=== PATIENT | male | born 1970 | race Caucasian/White ===

== ENCOUNTER 2025-08-12 12:40 | Observation (INO) ==
--- NOTE | 2025-08-12 12:58 | Emergency Department Note ---
Impression & Plan NSTEMI (non-ST elevated myocardial infarction) ED Provider Note CHIEF COMPLAINT: Chest pain HISTORY OF PRESENTING ILLNESS: This 54-year-old male patient presents to the emergency department for evaluation of substernal chest pain radiating towards his left arm. The patient states that the symptoms started 1.5 to 2 hrs prior to arrival. He states that it feels like someone is sitting on the middle of his chest. Also has a squeezing feeling. The patient took 4 baby aspirin approximately 1 hour ago prior to arrival. There was no improvement after the baby aspirin. The patient states that he was walking over to his brother's house which was about 100 yards from his parents house. He states that he was breathing in the cold air when the symptoms started. The patient went back to his parent's house to try to rest, but the symptoms got worse. He had a little sweating initially that resolved. The patient was able to eat Thanksgiving dinner, but the symptoms persisted and he became concerned. The patient has been taking a medication for his phlegm recently, but denies any fever, cough, or other URI symptoms. No history of asthma or reactive airway disease. He states that he has a heart murmur that was diagnosed in 2017 and had an ECHO that was concerning that he may have had a previous heart attack, but no other acute findings per patient. The patient does not think he's ever had a stress test. He is currently on cholesterol medication, but not on blood pressure medication. He states that his BP has been high recently though. He feels like the cold air triggered his lungs causing the pain. However, the symptoms did not improve after going into the warm. He is from [place], [place] and is up visiting for the holidays. He did take 4 baby aspirin about 1 hour ago. He is not on any blood thinners. He has a strong family history of heart problems including heart attacks, cardiac stents, and HTN. He drove 9-9.5 hrs to get here yesterday. The patient denies recent injury/trauma/surgery. Denies any personal history of blood clots or bleeding disorders. Denies any family history of blood clots or bleeding disorders. Denies any hormonal medication use. Denies any hemoptysis. Denies leg/calf pain or swelling. REVIEW OF SYSTEMS: See HPI for pertinent positives and pertinent negatives. ALLERGIES: NKDA MEDICATIONS: Levothyroxine, Cholesterol medication, medication for phlegm PAST MEDICAL HISTORY: Hypothyroidism, high cholesterol, allergic rhinitis, heart murmur, right Achilles tendon repair, left meniscal repair PHYSICAL EXAM: VITALS: Vitals are noted on the nurse's note and reviewed by myself. GENERAL: Non toxic, in no acute distress, non-diaphoretic. SKIN: Capillary refill <2 sec. EYES: PERRLA. EOMI. Conjunctivae without injection, sclerae without icterus. NOSE: Patent without discharge. MOUTH: Mucous membranes moist. Uvula midline. Airway patent. NECK: Supple without nuchal rigidity. HEART: Regular rate and rhythm without murmurs gallops or rubs. LUNGS: Clear to auscultation bilaterally without wheezes, rales or rhonchi. No retractions or accessory muscle use. ABDOMEN: Positive bowel sounds x 4. Normal tympanic percussion. Soft, nontender to palpation. No masses or hepatosplenomegaly. Warner sign negative. No CVA tenderness. No guarding, rigidity, or rebound tenderness. No focal RLQ or LLQ tenderness. MUSCULOSKELETAL: No gross musculoskeletal defects. Bilateral calves are nontender to palpation. No erythema, edema, or warmth of the bilateral calves. Peripheral pulses 2+ and equal in the bilateral upper and lower extremities. NEURO: Patient was alert and oriented. No focal neurological deficits. DIFFERENTIAL DIAGNOSIS: Differential diagnosis includes angina, NM, pericarditis, myocarditis, aortic dissection, pleurisy, pneumothorax, PE, pneumonia, pneumomediastinum, esophagitis, esophageal spasm, GERD, perforated esophagus, perforated duodenal/gastric ulcer, pancreatitis, cholecystitis, costochondritis, musculoskeletal, bronchitis, URI, or others. ED COURSE AND MEDICAL DECISION MAKING: MEDICATIONS GIVEN: The patient took 4 baby aspirin prior to arrival. 250 mL normal saline solution bolus. Nitroglycerin 0.4 mg sublingual. MONITOR: Continuous nurse monitoring: Order was placed for continuous nurse monitoring. Patient was placed on the nurse monitoring and continuous pulse ox. Patient was noted to be in normal sinus rhythm at an initial rate of 74 bpm per my interpretation. EKG: EKG was interpreted by myself as normal saline solution bolus at 71 bpm with no acute ST or T wave changes. INTERPRETATION OF LABS: I interpreted the labs with full lab results as below in the lab section of this note. Laboratory results pertinent to the emergent complaint are discussed in the MDM section below. The patient was advised to follow up with their PCP and/or specialist(s) for further outpatient monitoring and management of any abnormal results. INTERPRETATION OF IMAGING: Imaging studies were interpreted by myself and read by radiology as per the imaging section of this note. The patient was advised to follow up with their PCP and/or specialist(s) for further outpatient management of any non-emergent abnormal findings. Chest x-ray showed cardiomegaly with no acute cardiopulmonary etiology. CONSULTATIONS: Dr. Prakash of cardiology. On-call hospitalist. MDM SUMMARY: I examined the patient. The patient states that approximate 1.5 to 2 hours prior to arrival he was walking to his brother's house and developed substernal chest pain. The patient initially thought it was from the cold air, but the symptoms did not resolve when he went inside and rested. The patient ate Thanksgiving dinner, but the symptoms persisted. He felt like something was sitting on his chest and he had a squeezing pain. He did take 4 baby aspirin prior to arrival. An IV lock was placed and labs were drawn. The patient had already taken the 324 mg of aspirin. The patient was given 250 mL normal saline solution bolus. The patient was given sublingual nitroglycerin with complete resolution of his chest pain. The patient remained chest pain-free in the emergency department. EKG did not show evidence of STEMI or ischemic changes. The patient remained on the monitor with no changes in his cardiac rhythm per monitor chancery clerk. CBC without leukocytosis, anemia, or thrombocytopenia. Coags are normal. D- dimer normal. Glucose 155, but CMP otherwise normal. Lipase normal. Magnesium normal. TSH normal. High-sensitivity troponin elevated at 533.3. Repeat high- sensitivity troponin after the patient had already been admitted increased to 3010.2. Chest x-ray showed cardiomegaly with no acute cardiopulmonary etiology. I had a meaningful discussion about this patient with Dr. Harry who agrees with my assessment and the treatment plan. The patient's symptoms and workup findings are concerning for NSTEMI. I spoke with the on-call hospitalist who agreed to admit the patient for further evaluation and treatment. I spoke with Dr. Prakash of cardiology who recommended starting the patient on heparin, a beta-lori, and a statin. He recommended obtaining an echo and having the patient be n.p.o. after midnight. I relayed these recommendations to the on- call hospitalist. The patient's care was transferred in stable condition. 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 Beliefs That Will Affect Care: None Current Living Situation: Family Other Information That Helps Us Care for You: No Feels Safe at Home: Yes Safety Concerns: Feels Safe At This Time Allergies Allergies Allergy/AdvReac Type Severity Reaction Status Date / Time No Known Allergies Allergy Verified 08/12/25 12:59 Home Meds Home Medications Medication Instructions Recorded Confirmed atorvastatin 20 mg tablet 20 mg PO DAILY 08/12/25 08/12/25 levothyroxine 200 mcg tablet 200 mcg PO DAILY 08/12/25 08/12/25 montelukast 10 mg tablet 10 mg PO DAILY 08/12/25 08/12/25 Results & Data (ED) Vital Signs Vital Signs - 24 hr 08/12/25 12:42 08/12/25 12:43 08/12/25 12:50 Temperature 36.9 C Temperature Source Oral Pulse Rate 74 Pulse Rate [Apical] 75 Respiratory Rate 19 18 Respiratory Effort / Characteristics Non-Labored Spontaneous Respiratory Depth Normal Blood Pressure 186/101 H Blood Pressure [Left Arm] 177/103 H Blood Pressure Mean 129 Blood Pressure Mean [Left Arm] 127 Blood Pressure Position Sitting Pulse Oximetry 96 94 97 Oxygen Delivery Method Room Air Room Air Room Air Sepsis Recent Fever Within 48 Hours No Sepsis New/Unexplained Change in Mental Status N/A Sepsis Action Taken by Nursing No Action Required 08/12/25 12:59 08/12/25 13:30 08/12/25 14:00 Temperature Temperature Source Pulse Rate 75 Pulse Rate [Apical] 65 71 Respiratory Rate 16 16 Respiratory Effort / Characteristics Respiratory Depth Blood Pressure Blood Pressure [Left Arm] 148/88 H 160/94 H Blood Pressure Mean Blood Pressure Mean [Left Arm] 108 116 Blood Pressure Position Pulse Oximetry 96 95 Oxygen Delivery Method Room Air Room Air Sepsis Recent Fever Within 48 Hours Sepsis New/Unexplained Change in Mental Status Sepsis Action Taken by Nursing Laboratory Data 08/12/25 13:03 08/12/25 13:03 Lab Results 08/12/25 Range/Units 13:03 WBC 6.59 (4.8-10.8) K/ul RBC 5.41 (4.70-6.10) M/uL Hgb 15.9 (14.0-18.0) g/dL Hct 47.1 (42.0-52.0) % MCV 87.1 (80.0-100.0) fL MCH 29.4 (25.0-34.0) pg MCHC 33.8 (32.0-36.0) g/dL RDW Std Deviation 39.2 (36.4-46.3) fL RDW Coeff of Mallorie 12.4 (11.5-14.5) % Plt Count 214 (130-400) K/uL MPV 9.8 (9.4-12.4) fL Immature Gran % (Auto) 0.5 % Neut % (Auto) 77.8 % Lymph % (Auto) 16.8 % [place] % (Auto) 3.8 % Eos % (Auto) 0.2 % Baso % (Auto) 0.9 % Neut # (Auto) 5.13 (1.40-6.50) K/uL Lymph # (Auto) 1.11 L (1.20-3.40) K/uL [place] # (Auto) 0.25 (0.11-0.59) K/uL Eos # (Auto) 0.01 (0.00-0.50) K/uL Baso # (Auto) 0.06 (0.00-0.20) K/uL Immature Gran # (Auto) 0.03 (0.01-0.20) K/uL PT 10.6 (9.0-12.0) Seconds INR 1.0 (0.9-1.1) APTT 24 (21-31) Seconds PTT Ratio 0.9 D-Dimer < 190 (0-500) ug/L FEU Sodium 139 (136-145) mmol/L Potassium 4.2 (3.5-5.1) mmol/L Chloride 103 (98-107) mmol/L Carbon Dioxide 30 (21-32) mmol/L Anion Gap 6 (3-11) BUN 15 (6-23) mg/dl Creatinine 1.00 (0.6-1.4) mg/dl Est Cr Clr Drug Dosing 104.1 ml/min eGFR 88.88 BUN/Creatinine Ratio 15.0 (10-20) Glucose 155 H (70-99(Fasting)) mg/dl Calcium 9.3 (8.6-10.3) mg/dl Magnesium 2.0 (1.7-2.4) mg/dl Total Bilirubin 1.0 (0.2-1.0) mg/dl AST 30 (13-39) U/L ALT 45 (7-52) U/L Alkaline Phosphatase 95 (34-104) U/L Troponin I High Sens 533.3 H* (0-20) pg/ml Total Protein 7.4 (6.0-8.3) gm/dl Albumin 4.3 (3.4-5.0) gm/dl Globulin 3.1 (2.5-4.0) gm/dl Albumin/Globulin Ratio 1.4 (0.9-2) Lipase 30 (11-82) U/L TSH 0.331 (0.300-4.500) uIu/ml Administered Medications Heparin Sodium/Dextrose (Heparin 71688 Unit/500 Ml D5w) 25,000 units in 500 mls @ 20 mls/hr IV .Q24H ALAN; Protocol Stop: 09/11/25 15:44 Last Admin: 08/12/25 17:23 Dose: 1,000 units/hr, 20 mls/hr Documented By: AM Co-signed By: ALONSO Discontinued Medications Heparin Sodium (Porcine) (Heparin Sod (Porcine) 1000 Unit/Ml) 7,000 units IV NOW ONE Stop: 08/12/25 15:04 Last Admin: 08/12/25 16:51 Dose: Not Given Documented By: AM Heparin Sodium (Porcine) (Heparin Sod (Porcine) 1000 Unit/Ml) 4,000 units IV NOW ONE Stop: 08/12/25 15:39 Last Admin: 08/12/25 17:22 Dose: 4,000 units Documented By: AM Co-signed By: ALONSO Heparin Sodium/Dextrose (Heparin Iv Adult Wt-Based Standard W/ Initial Bolus Protocol) 1 each IV NOW STA; Protocol Stop: 08/12/25 14:48 Last Admin: 08/12/25 16:46 Dose: Not Given Documented By: AM Heparin Sodium/Dextrose (Heparin Iv Adult Wt-Based Low-Dose W/ Initial Bolus Protocol) 1 each IV NOW STA; Protocol Stop: 08/12/25 15:24 Last Admin: 08/12/25 17:23 Dose: 1 each Documented By: AM Sodium Chloride (Nss) 250 mls @ 999 mls/hr IV .Q16M ONE Stop: 08/12/25 13:14 Last Infusion: 08/12/25 15:12 Dose: Infused Documented By: amg Admin: 08/12/25 13:17 Dose: 999 mls/hr Documented By: amg Heparin Sodium/Dextrose (Heparin 75130 Unit/500 Ml D5w) 25,000 units in 500 mls @ 32 mls/hr IV .[id number] ALAN; Protocol Stop: 09/11/25 15:14 Last Admin: 08/12/25 16:46 Dose: Not Given Documented By: AM Metoprolol Tartrate (Metoprolol Tartrate 25 Mg Tab) 25 mg PO ONE ONE Stop: 08/12/25 15:01 Last Admin: 08/12/25 16:45 Dose: 25 mg Documented By: AM Nitroglycerin (Nitroglycerin Sl 0.4 Mg/Tab Tab) 0.4 mg SL NOW STA Stop: 08/12/25 13:00 Last Admin: 08/12/25 13:18 Dose: 0.4 mg Documented By: amg Imaging Data Radiologist's Impression: Chest X-Ray 08/12/25 12:59 SINGLE VIEW CHEST CLINICAL HISTORY: Chest pain FINDINGS: An AP, portable, upright chest radiograph is obtained. No prior studies are available for comparison at the time of dictation. The heart is enlarged. The pulmonary vasculature is noncongested. There is mild elevation of the right hemidiaphragm and bibasilar atelectasis. No airspace consolidation or large pleural effusion is identified. No pneumothorax is seen. The bony thorax is grossly intact. Arthritic change is noted in the left shoulder. IMPRESSION: Cardiomegaly with no acute cardiopulmonary abnormality identified. ACT 112: Negative or not required by law. Electronically signed by: Casa Childress M.D. 08/12/2025 1:33 PM Discharge Plan Visit Data Chief Complaint: Cardiac Assessment Stated Complaint: CHEST PAIN LT ARM TINGLING ED Provider: Kyrie Harry ED Midlevel Provider: Paulina Mohr Discharge Problem: NSTEMI (non-ST elevated myocardial infarction) Patient Disposition: Admitted As Inpatient Condition: Fair Discharge Instructions Interventions: ED Discharge Assessment Last Done: 08/12/25 16:00
[2025-08-12] MEDS: SODIUM CHLORIDE 0.9% 250 ML IV ONE (13:17)
[2025-08-12] MEDS: NITROGLYCERIN SL 0.4 MG/TAB TAB SL STA (13:18)
[2025-08-12 13:23] LABS: Hematocrit (blood only) 47.1 % (42.0-52.0); Hemoglobin 15.9 g/dL (14.0-18.0); Immature Granulocytes # (auto) 0.03 K/uL (0.01-0.20); Immature Granulocytes % (auto) 0.5 %; Mean Corpuscular Hemoglobin 29.4 pg (25.0-34.0); Mean Corpuscular Volume 87.1 fL (80.0-100.0); Platelet Count 214 K/uL (130-400); RDW Standard Deviation 39.2 fL (36.4-46.3); Red Blood Count 5.41 M/uL (4.70-6.10); White Blood Count 6.59 K/ul (4.8-10.8)
--- NOTE | 2025-08-12 13:34 | XRay Report ---
SINGLE VIEW CHEST CLINICAL HISTORY: Chest pain FINDINGS: An AP, portable, upright chest radiograph is obtained. No prior studies are available for c omparison at the time of dictation. The heart is enlarged. The pulmonary vasculature is noncongested. There is mild elevation of the right hemidiaphragm and bibasilar atelectasis. No airspace consolidat ion or large pleural effusion is identified. No pneumothorax is seen. The bony thorax is grossly inta ct. Arthritic change is noted in the left shoulder. IMPRESSION: Cardiomegaly with no acute cardiopulmonary abnormality identified. ACT 112: Negative or not required by law. Electronically signed by: Casa Childress M.D. 08/12/2025 1:33 PM
[2025-08-12 13:41] LABS: Alanine Aminotransferase 45.0 U/L (7-52); Albumin Globulin Ratio 1.4 (0.9-2); Albumin Level 4.3 gm/dl (3.4-5.0); Alkaline Phosphatase 95.0 U/L (34-104); Anion Gap 6.0 (3-11); Bilirubin,Total 1.0 mg/dl (0.2-1.0); Blood Urea Nitrogen 15.0 mg/dl (6-23); Calcium 9.3 mg/dl (8.6-10.3); Carbon Dioxide 30.0 mmol/L (21-32); Chloride 103.0 mmol/L (98-107); Creatinine Clr Calc Pharmacy 104.1 ml/min; Globulin 3.1 gm/dl (2.5-4.0); Glucose 155.0 mg/dl (70-99(Fasting)); Lipase 30.0 U/L (11-82); Magnesium 2.0 mg/dl (1.7-2.4); Potassium 4.2 mmol/L (3.5-5.1); Sodium 139.0 mmol/L (136-145); Total Protein 7.4 gm/dl (6.0-8.3)
[2025-08-12 13:56] LABS: INR 1.0 (0.9-1.1); Partial Thromboplastin Time 24 Seconds (21-31); Prothrombin Time 10.6 Seconds (9.0-12.0)
--- NOTE | 2025-08-12 14:19 | History & Physical Report ---
Date of Service August 12, 2025 Assessment & Plan (1) NSTEMI (non-ST elevated myocardial infarction): (2) Hyperlipidemia: (3) Hypothyroidism: Plan Patient is a 54 year old M with a past medical history of hyperlipidemia, hypothyroidism, hypertension without medical management, presenting with exertional chest pain that started today around 8:30am when ambulating short distance. Initially symptoms felt like a "toothache" then progressed to a squeezing chest pain with clamminess and diaphoresis. He took 4 baby aspirin and came here. Has a history of a heart murmur, found on cardiac workup via Echo in 2009 and then again 2016; asymptomatic at the time but had a workup for employment purposes. Echo suggestive of previous TN per patient report. Has had high blood pressure but not on an medications. He has no personal cardiac history, but does have a strong family history of cardiac disease with father requiring multiple stents. Not taking blood thinners. Lives in [place] and visiting family for the holiday. NSTEMI Admit to PCU Presenting with chest pain with exertion; Trop elevated 533; Chest pain resolved with Nitro given in ED EKG showing NSR with rate 71 bpm, QTc 428 Echo ordered and pending; reportedly had Echo 2009 and 2016 for routine work clearance with murmur finding and poss old TN Heparin gtts + bolus started Lopressor 25 mg BID started Daily EKG x 2 Trend Trop Q6H and as needed Cardiology consult ordered and pending NPO at [facility] for possible cardiac cath tomorrow Hyperlipidemia Continue home statin Hypothyroidism Continue home levothyroxine DVT Ppx: Heparin Code status: Full PCP: Out of state Dispo: Admit Patient seen in collaboration with Dr. Lake. Please see addendum.I spent a total of 60 minutes coordinating, documenting and providing care for this patient excluding time spent in the performance of separately billed services or time spent by another provider/QHP. History of Present Illness Primary Care Provider: FABIOLA PARKER Patient is a 54 year old M with a past medical history of hyperlipidemia, hypothyroidism, hypertension without medical management, presenting with exertional chest pain that started today around 8:30am when ambulating short distance. Initially symptoms felt like a "toothache" then progressed to a squeezing chest pain with clamminess and diaphoresis. He took 4 baby aspirin and came here. Has a history of a heart murmur, found on cardiac workup via Echo in 2009 and then again 2017; asymptomatic at the time but had a workup for employment purposes. Echo suggestive of previous TN per patient report. Has had high blood pressure at PCP but not on an medications. He has no personal cardiac history, but does have a strong family history of cardiac disease with father requiring multiple stents. Not taking blood thinners. Lives in [place] and visiting family for the holiday. Denies fever, chills, weight loss, weakness, headache, cognitive changes, vision/hearing changes, chest pain, SOB, swelling, difficulty breathing, urinary concerns, N/V/D, joint swelling/pain, ambulation difficulty, skin rashes, lesions, bleeding, bruising. Discussed with ED provider labs specifically elevated troponin with suspected NSTEMI, medical management in ED including cardiology consult and nitro administration, reason for admission for NSTEMI management. In the emergency department, patient was hypertensive with otherwise stable vital signs. EKG showing NSR with rate 71 bpm, QTc 428. Trop elevated 533. Nitro given for chest pain with positive results. Lab workup unremarkable with no evidence of infectious etiology. Nonfasting glucose 155 following a large meal. Additional workup with Chest Xray showing cardiomegaly and no active cardiopulmonary disease. History obtained primarily from the patient and via hospitalization record. Allergies Allergy/AdvReac Type Severity Reaction Status Date / Time No Known Allergies Allergy Verified 08/12/25 12:59 Home Medications Medication Instructions Recorded Confirmed Type atorvastatin 20 mg tablet 20 mg PO DAILY 08/12/25 08/12/25 History levothyroxine 200 mcg tablet 200 mcg PO DAILY 08/12/25 08/12/25 History montelukast 10 mg tablet 10 mg PO DAILY 08/12/25 08/12/25 History Past Med/Surg History Problem List (Updated 08/12/25 @ 14:44 by PRASAD Church) Hypothyroidism Hyperlipidemia NSTEMI (non-ST elevated myocardial infarction) Social History Smoking Status: Never smoker Preferred Language: Cymro Feels Safe at Home: Yes Review of Systems Review of Systems: All systems reviewed & are unremarkable except as noted in HPI & below Physical Exam Physical Exam: VITALS: Reviewed. WEIGHT/BMI reviewed. GEN: Healthy appearing, well-developed, NAD. PSYCH: Good Judgment. AOx3. Normal memory, mood, and affect. HEENT -Head: NC/AT; -Eyes: PERRL, EOMI. No discharge or redn ess; -Ears: External ears are normal. -Nose: Normal nares. -Mouth and throat: MMM. Normal gums, muc gilbert, palate,. Good dentition. NECK: Supple, with no masses. CV: S1, S2 with LUNGS: CTAB, no w/r/c. ABD: Soft, NT/ND, NBS, no masses or organomegaly. : N/A SKIN: Warm, well perfused. No skin rashes or abnormal lesions. MSK: No deformities, Normal gait. EXT: No clubbing, cyanosis, or edema. NEURO: Ambulating with no limitations. Normal muscle strength and tone. No focal deficits. Results & Data Results & Data Vital Signs (Past 12 Hours) Vital Signs Temp Pulse Pulse Resp BP BP Pulse Ox 08/12/25 14:00 71 16 160/94 H 95 08/12/25 13:30 65 16 148/88 H 96 08/12/25 12:59 75 08/12/25 12:50 75 18 177/103 H 97 08/12/25 12:43 36.9 C 74 19 186/101 H 94 O2 Del Method 08/12/25 14:00 Room Air 08/12/25 13:30 Room Air 08/12/25 12:59 08/12/25 12:50 Room Air 08/12/25 12:43 Room Air Laboratory Results Short CBC 08/12/25 Range/Units 13:03 WBC 6.59 (4.8-10.8) K/ul Hgb 15.9 (14.0-18.0) g/dL Hct 47.1 (42.0-52.0) % Plt Count 214 (130-400) K/uL BMP 08/12/25 13:03 Sodium 139 Potassium 4.2 Chloride 103 Carbon Dioxide 30 BUN 15 Creatinine 1.00 Glucose 155 H Calcium 9.3 Liver Function 08/12/25 Range/Units 13:03 Total Bilirubin 1.0 (0.2-1.0) mg/dl AST 30 (13-39) U/L ALT 45 (7-52) U/L Alkaline Phosphatase 95 (34-104) U/L Albumin 4.3 (3.4-5.0) gm/dl Diagnostic Findings Chest X-Ray 08/12/25 12:59 SINGLE VIEW CHEST CLINICAL HISTORY: Chest pain FINDINGS: An AP, portable, upright chest radiograph is obtained. No prior studies are available for comparison at the time of dictation. The heart is enlarged. The pulmonary vasculature is noncongested. There is mild elevation of the right hemidiaphragm and bibasilar atelectasis. No airspace consolidation or large pleural effusion is identified. No pneumothorax is seen. The bony thorax is grossly intact. Arthritic change is noted in the left shoulder. IMPRESSION: Cardiomegaly with no acute cardiopulmonary abnormality identified. ACT 112: Negative or not required by law. Electronically signed by: Casa Childress M.D. 08/12/2025 1:33 PM Supervising Physician Co-Signing Physician Notes Attending addendum: The patient was seen and examined in emergency room 54-year-old obese male with significant past medical history of hypertension, hyperlipidemia and hypothyroidism apparently has been complaining of Chest pain started around 8:30 AM when ambulating for a short distance Pain was in the center of the chest, heavy feeling like cold air going into the chest and associated with sweating. pain lasted for about 1 to 2 hours Denies any other significant symptoms and has been feeling better following sublingual nitro in the emergency room On examination Lying in bed without any acute distress and denies any more chest pain Remains hemodynamically stable with blood pressure on the upper side at 160/94 Chest was clear to auscultate bilaterally HeartS1-S2, regular Abdomenbenign Extremitiesno edema CNSalert, awake and oriented x 3 and no focal sensory or no motor deficit appreciated His admission labs, EKG and imaging studies reviewed Significant elevation of troponin to 533.3 without any EKG changes and likely has non-ST elevation [place] Cardiology consulted and the patient is being started with intravenous heparin, beta-lori and he has been already on statin. Aspirin 81 mg will be continued as well Agree with assessment and plan as outlined above by PRASAD Loyola and take the full responsibility of care in the hospital Total time taken to talk to the patient, examining him, reviewing the chart and the medications and planning management was [address] Ronni Lake
[2025-08-12 14:21] LABS: Thyroid Stimulating Hormone 0.331 uIu/ml (0.300-4.500)
[2025-08-12] MEDS ORDERED: POLYETHYLENE (MIRALAX) 17 GM PACK PO PRN (16:23)
[2025-08-12] MEDS ORDERED: MELATONIN 3 MG TAB PO PRN (16:23)
[2025-08-12] MEDS ORDERED: ONDANSETRON INJ 2 MG/ML 2 ML VIAL IV PRN (16:23)
[2025-08-12] MEDS ORDERED: NITROGLYCERIN SL 0.4 MG/TAB TAB SL PRN (16:23)
[2025-08-12] MEDS ORDERED: MAGNESIUM HYDROXIDE SUSP 30 ML UDC PO PRN (16:23)
[2025-08-12] MEDS ORDERED: ACETAMINOPHEN 325 MG TAB PO PRN (16:23)
[2025-08-12] MEDS ORDERED: ALUMINUM/MAGNESIUM SUSP 30 ML UDC PO PRN (16:23)
[2025-08-12] MEDS: METOPROLOL TARTRATE 25 MG TAB PO ONE (16:45)
[2025-08-12] MEDS: HEPARIN 25000 UNIT/500 ML D5W 25,000 UNITS/500 ML BAG IV SCH ×2 (16:46→17:23)
[2025-08-12] MEDS: Heparin IV Adult Wt-Based Standard w/ INITIAL Bolus Protocol IV STA (16:46)
[2025-08-12] MEDS: HEPARIN SOD (PORCINE) 1000 UNIT/ML IV ONE ×2 (16:51→17:22)
[2025-08-12] MEDS: Heparin IV Adult Wt-Based Low-Dose w/ INITIAL Bolus Protocol IV STA (17:23)
[2025-08-12] MEDS: METOPROLOL TARTRATE 25 MG TAB PO SCH (20:05)
[2025-08-13 00:23] LABS: ANTI-Xa, UFH(UnfractionatedHep 0.16 IU/ml (0.3-0.7)
[2025-08-13 01:09] LABS: Hematocrit (blood only) 46.7 % (42.0-52.0); Hemoglobin 15.8 g/dL (14.0-18.0); Mean Corpuscular Hemoglobin 29.2 pg (25.0-34.0); Mean Corpuscular Volume 86.3 fL (80.0-100.0); Platelet Count 218 K/uL (130-400); RDW Standard Deviation 39.3 fL (36.4-46.3); Red Blood Count 5.41 M/uL (4.70-6.10); White Blood Count 10.78 K/ul (4.8-10.8)
[2025-08-13] MEDS: HEPARIN SOD (PORCINE) 1000 UNIT/ML IV ONE (01:11)
[2025-08-13 01:25] LABS: Anion Gap 8.0 (3-11); Blood Urea Nitrogen 15.0 mg/dl (6-23); Calcium 8.8 mg/dl (8.6-10.3); Carbon Dioxide 25.0 mmol/L (21-32); Chloride 106.0 mmol/L (98-107); Creatinine Clr Calc Pharmacy 119.6 ml/min; Glucose 103.0 mg/dl (70-99(Fasting)); Magnesium 2.0 mg/dl (1.7-2.4); Potassium 4.0 mmol/L (3.5-5.1); Sodium 139.0 mmol/L (136-145)
[2025-08-13] MEDS: LEVOTHYROXINE SODIUM 200 MCG TABLET PO SCH (05:50)
--- NOTE | 2025-08-13 07:59 | Hospitalist Progress Note ---
<Statement entered by Dao Phan, - 08/13/25 15:10> I have seen and examined the patient and have discussed the case with the advance practice provider. I have reviewed the advanced practitioner's documentation, and I agree with, and take responsibility for that plan of care. Patient seen post-cardiac cath. Resting comfortably in bed. States he actually feels improved and his chest. Feels like he can breathe better. Reviewed need for new medications: Dual antiplatelet and beta-lori. Further plan of care as outlined below I spent a total of 17 minutes coordinating, documenting, and providing care for this patient excluding time spent by another provider/QHP. Date of Service August 13, 2025 Assessment & Plan (1) NSTEMI (non-ST elevated myocardial infarction): (2) Hyperlipidemia: (3) Hypothyroidism: Plan Patient is a 54 year old M with a past medical history of hyperlipidemia, hypothyroidism, hypertension without medical management, presenting with exertional chest pain that started today around 8:30am when ambulating short distance. Initially symptoms felt like a "toothache" then progressed to a squeezing chest pain with clamminess and diaphoresis. He took 4 baby aspirin and came here. Has a history of a heart murmur, found on cardiac workup via Echo in 2009 and then again 2017; asymptomatic at the time but had a workup for employment purposes. Echo suggestive of previous IN per patient report. Has had high blood pressure but not on an medications. He has no personal cardiac history, but does have a strong family history of cardiac disease with father requiring multiple stents. Not taking blood thinners. Lives in [place] and visiting family for the holiday. NSTEMI Presenting with chest pain with exertion; Trop elevated 533 tending up -> 06936 overnight; Chest pain resolved with Nitro given in ED Today EKG showing NSR with no ST elevation, rate 61 bpm, QTc 428 Echo showing LVEF 60-65%, normal wall motion, no valvular dysfunction; reportedly had Echo 2009 and 2016 for routine work clearance with murmur finding and poss old IN Heparin gtts to continue s/p cardiac cath today with Dr. Miranda today-> 70-80% stenosis with thrombus, 80% earlymid stenosis to LAD with stent placement. Recommendations dual- antiplatelet therapy (effient/asa) and statin Cardiology consulted today with the following recommendations: * Change metoprolol tartrate to metoprolol succinate 25 mg daily am of 08/14 * Possibly adding losartan 25 mg daily for HTN if renal function stable on 08/14/25 * Check lipid panel to fasting labs from this am * Increase atorvastatin to 40 mg daily Cardiology to follow Hyperlipidemia Continue home statin- will increase dosing per Cardiology recommendations Hypothyroidism Continue home levothyroxine DVT Ppx: Heparin Code status: Full PCP: Out of state Dispo: Admit Patient seen in collaboration with Dr. Phan. Please see addendum.I spent a total of 40 minutes coordinating, documenting and providing care for this patient excluding time spent in the performance of separately billed services or time spent by another provider/QHP. Admission and Anticipated Discharge Date Admission Date: August 12, 2025 Subjective Patient seen and examined at bedside this morning. Patient reporting no chest pain and feels better than when he initially came to the hospital. Discussed elevated troponin levels, Cardiology consult, and possible cardiac catheterization today. Patient verbalized understanding and agreeable to this plan. Also discussed started beta lori therapy and the need to continue with treatment post discharge. Denies chest pain, shortness of breath with and without exertion, dizziness, lightheadedness, numbness/tingling, abdominal pain, nausea, back pain. Review of Systems Review of Systems: All systems reviewed & are unremarkable except as noted in Subjective Physical Exam Physical Exam: VITALS: Reviewed. WEIGHT/BMI reviewed. GEN: Healthy appearing, well-developed, NAD. PSYCH: Good Judgment. AOx3. Normal memory, mood, and affect. HEENT -Head: NC/AT; -Eyes: PERRL, EOMI. No discharge or redn ess; -Ears: External ears are normal. -Nose: Normal nares. -Mouth and throat: MMM. Normal gums, muc gilbert, palate,. Good dentition. NECK: Supple, with no masses. CV: RRR, no m/r/g. LUNGS: CTAB, no w/r/c. ABD: Soft, NT/ND, NBS, no masses or organomegaly. : N/A SKIN: Warm, well perfused. No skin rashes or abnormal lesions. MSK: No deformities, Normal gait. EXT: No clubbing, cyanosis, or edema. NEURO: Ambulating with no limitations. Normal muscle strength and tone. No focal deficits. Results & Data Results & Data Vital Signs (Past 12 Hours) Vital Signs Temp Pulse Pulse Resp BP BP Pulse Ox 08/13/25 07:19 36.8 C 56 L 20 147/83 H 92 08/13/25 03:31 36.4 C L 63 17 144/81 H 92 08/12/25 22:54 36.6 C 61 17 157/90 H 154/88 H 92 08/12/25 21:36 65 O2 Del Method 08/13/25 07:19 Room Air 08/13/25 03:31 Room Air 08/12/25 22:54 Room Air 08/12/25 21:36 Laboratory Results Short CBC 08/13/25 Range/Units 00:47 WBC 10.78 (4.8-10.8) K/ul Hgb 15.8 (14.0-18.0) g/dL Hct 46.7 (42.0-52.0) % Plt Count 218 (130-400) K/uL BMP 08/13/25 00:47 Sodium 139 Potassium 4.0 Chloride 106 Carbon Dioxide 25 BUN 15 Creatinine 0.87 Glucose 103 H Calcium 8.8
[2025-08-13 08:06] LABS: ANTI-Xa, UFH(UnfractionatedHep 0.26 IU/ml (0.3-0.7)
--- NOTE | 2025-08-13 08:53 | XCELERA ---
[id number]
[2025-08-13] MEDS ORDERED: LEVOTHYROXINE SODIUM 200 MCG TABLET PO SCH (09:00)
[2025-08-13] MEDS: MONTELUKAST SODIUM 10 MG TABLET PO SCH (09:11)
[2025-08-13] MEDS: ATORVASTATIN 20 MG TAB PO SCH (09:12)
[2025-08-13] MEDS: ASPIRIN 81 MG ECTAB PO SCH (09:12)
--- NOTE | 2025-08-13 10:09 | Cardiology Consultation ---
Date of Consultation August 13, 2025 Assessment & Plan (1) NSTEMI (non-ST elevated myocardial infarction): (2) Hyperlipidemia: (3) HTN (hypertension): 54-year-old male with past history of hypothyroidism, dyslipidemia, and hypertension presents with symptoms of classic angina, no acute repolarization abnormalities on serial EKG tracings, elevation in high-sensitivity troponin with initial measurement of 533 that subsequently increased to 3010--> 14,401--> 14,263 --> 14,333 pg/ml. Was hypertensive on presentation. Symptoms resolved having received sublingual nitroglycerin x 1 in the emergency department. Echocardiogram with no regional wall motion abnormalities. Normal LVEF 60-65%. * Continue ASA, UF heparin infusion * Change metoprolol to metoprolol succinate 25 mg daily am of 08/14 * Anticipate adding losartan 25 mg daily for HTN if renal function stable on 08/14/25 * Add fasting lipid panel to fasting labs from this am * Increase atorvastatin to 40 mg daily * Keep NPO except medications * Case discussed with Dr Miranda of interventional cardiology. Tentative plan for invasive coronary angiography today. I spent a total of 80 minutes on the date of service in preparation, delivery, and documentation of the care provided to this patient, excluding any time spent in the performance of separately billed services. 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 The patient is in the area visiting his family who live in [place]. He states that his parents and his brother have adjoining properties. Yesterday, he was in his normal state of health and feeling well helping his family with final preparations for their Thanksgiving meal. He did walk [id number] between the two properties and did not feel anything unusual. When he was back in his parents house he first noted feeling "clammy "with subsequent intermittent sensation of a squeezing sensation in his chest but then settled into a dull ache that felt like a toothache. He ate his Thanksgiving meal but noted having little appetite. His mother is a retired registered nurse and took his blood pressure with systolic blood pressure in the 180s. The patient took three 81 mg aspirin tablets and presented to the emergency department shortly thereafter. Initial blood pressure on arrival was 186/101. He received a dose of sublingual nitroglycerin with resolution of his symptoms and his symptoms have not returned. He was subsequently started on therapy including aspirin, metoprolol tartrate, and his outpatient statin medication was continued. He has been tolerating unfractioned heparin infusion without complication. Notes that he sees his primary care provider regularly and his most recent past two visits he had been found to have mildly high blood pressure with reading in the 140s over 90s. He had yet to start medication but the patient was watching his blood pressure on a home monitor. Past Medical History: Dyslipidemia hypothyroidism. 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[place], [place] He is physically active including hunting, walking, hiking, and running he describes rare alcohol use He is a non-smoker He has been , his spouse's name is Dejah They have 4 children Allergies Allergy/AdvReac Type Severity Reaction Status Date / Time No Known Allergies Allergy Verified 08/12/25 12:59 Home Medications Medication Instructions Recorded Confirmed Type atorvastatin 20 mg tablet 20 mg PO DAILY 08/12/25 08/12/25 History levothyroxine 200 mcg tablet 200 mcg PO DAILY 08/12/25 08/12/25 History montelukast 10 mg tablet 10 mg PO DAILY 08/12/25 08/12/25 History Patient History Social History Smoking Status: Never smoker Second Hand Exposure: No; Do You Dip or Chew Tobacco: No; Hx Alcohol Use: Yes Hx Substance Use: No Preferred Language: Moldovan Communication Ability: Effective Senior Behavioral Scientist Required: No Beliefs That Will Affect Care: None Current Living Situation: Family Feels Safe at Home: Yes Assistive Devices: None Review of Systems Review of Systems: All systems reviewed & are unremarkable except as noted in HPI & below Physical Exam Physical Exam: Temp Pulse Resp BP Pulse Ox O2 Del Method 36.8 C 56 L 20 147/83 H 92 Room Air 08/13/25 07:19 08/13/25 07:19 08/13/25 07:19 08/13/25 07:19 08/13/25 07:19 08/13/25 07:19 General: no acute distress and stated age Eyes: conjunctiva are pink and non-injected, sclera clear Neck: normal jugular venous pulse, no hepatojugular reflux Chest: normal shape and normal respiratory effort Lungs: clear to auscultation and percussion Cardiac Exam: - regular heart sounds, no murmurs, rubs, or gallops, no jugular venous distention Abdomen: abdomen soft, non-tender, no abnormal masses and no hepatosplenomegaly Extremities: no edema and no cyanosis Neuro:awake, conversant, follows commands, no focal motor deficits Psych: appropriate affect and insight. Results & Data Vital Signs (Past 12 Hours) Vital Signs Temp Pulse Resp BP BP Pulse Ox O2 Del Method 08/13/25 07:19 36.8 C 56 L 20 147/83 H 92 Room Air 08/13/25 03:31 36.4 C L 63 17 144/81 H 92 Room Air 08/12/25 22:54 36.6 C 61 17 157/90 H 154/88 H 92 Room Air Laboratory Results Cardiac Enzymes 08/12/25 08/12/25 08/12/25 Range/Units 13:03 15:05 18:47 AST 30 (13-39) U/L Troponin I High Sens 533.3 H* 3010.2 H* D 80533.9 H* D (0-20) pg/ml 08/13/25 08/13/25 Range/Units 00:47 07:11 AST (13-39) U/L Troponin I High Sens 35917.6 H* 10362.0 H* (0-20) pg/ml Coagulation 08/12/25 Range/Units 13:03 PT 10.6 (9.0-12.0) Seconds APTT 24 (21-31) Seconds CBC 08/12/25 08/13/25 Range/Units 13:03 00:47 WBC 6.59 10.78 (4.8-10.8) K/ul RBC 5.41 5.41 (4.70-6.10) M/uL Hgb 15.9 15.8 (14.0-18.0) g/dL Hct 47.1 46.7 (42.0-52.0) % Plt Count 214 218 (130-400) K/uL Neut # (Auto) 5.13 (1.40-6.50) K/uL Lymph # (Auto) 1.11 L (1.20-3.40) K/uL [place] # (Auto) 0.25 (0.11-0.59) K/uL Eos # (Auto) 0.01 (0.00-0.50) K/uL Baso # (Auto) 0.06 (0.00-0.20) K/uL Comprehensive Metabolic Panel 08/12/25 08/13/25 Range/Units 13:03 00:47 Sodium 139 139 (136-145) mmol/L Potassium 4.2 4.0 (3.5-5.1) mmol/L Chloride 103 106 (98-107) mmol/L Carbon Dioxide 30 25 (21-32) mmol/L BUN 15 15 (6-23) mg/dl Creatinine 1.00 0.87 (0.6-1.4) mg/dl Glucose 155 H 103 H (70-99(Fasting)) mg/dl Calcium 9.3 8.8 (8.6-10.3) mg/dl AST 30 (13-39) U/L ALT 45 (7-52) U/L Alkaline Phosphatase 95 (34-104) U/L Total Protein 7.4 (6.0-8.3) gm/dl Albumin 4.3 (3.4-5.0) gm/dl Diagnostic Findings EKG performed on presentation 08/12/2025 at 12:50 PM and interpreted independently: Normal sinus rhythm at 71 bpm, no significant ST segment changes, suggestion of nonpathologic Q waves in the inferior leads. Repeat tracing 08/05/2025 at 5:56 AM, interpreted independently: Sinus rhythm at 61 bpm, first-degree AV block, no significant ST changes with more prominent Q waves in the inferior leads. Summary of radiology report of chest x-ray: Enlargement of the heart silhouette with no acute cardiopulmonary process Summary of transthoracic echocardiogram performed 08/13/2025: No regional wall motion abnormalities Normal left ventricular ejection fraction in the range of 60 to 65%. No significant valvular heart disease Grade 1 diastolic dysfunction noted Coding Level of Care Code 14066 IN/OBS CONSULT LVL 5,80M Diagnoses NSTEMI (non-ST elevated myocardial infarction) I21.4 Hyperlipidemia E78.5 HTN (hypertension) I10
--- NOTE | 2025-08-13 10:36 | Electrocardiogram Report ---
Test Reason : Blood Pressure : */* mmHG Vent. Rate : 60 BPM Atrial Rate : 60 BPM P-R Int : 196 ms QRS Dur : 92 ms QT Int : 416 ms P-R-T Axes : -8 25 9 degrees QTcB Int : 416 ms Normal sinus rhythm possible Inferior infarct , age undetermined Abnormal ECG Confirmed by Dorian To ([id number]) on 08/13/2025 10:36:22 AM Referred By: REFERRED SELF Confirmed By: Dorian To
--- NOTE | 2025-08-13 10:36 | Electrocardiogram Report ---
Test Reason : Blood Pressure : */* mmHG Vent. Rate : 61 BPM Atrial Rate : 61 BPM P-R Int : 204 ms QRS Dur : 90 ms QT Int : 420 ms P-R-T Axes : 3 16 23 degrees QTcB Int : 422 ms Normal sinus rhythm possible Inferior infarct (cited on or before 12-Aug-2025) Abnormal ECG When compared with ECG of 12-Aug-2025 19:19, (unconfirmed) No significant change was found Confirmed by Dorian To ([id number]) on 08/13/2025 10:36:05 AM Referred By: REFERRED SELF Confirmed By: Dorian To
--- NOTE | 2025-08-13 10:38 | Electrocardiogram Report ---
Test Reason : Blood Pressure : */* mmHG Vent. Rate : 71 BPM Atrial Rate : 71 BPM P-R Int : 178 ms QRS Dur : 92 ms QT Int : 394 ms P-R-T Axes : 5 41 39 degrees QTcB Int : 428 ms Normal sinus rhythm Normal ECG No previous ECGs available Confirmed by Dorian To ([id number]) on 08/13/2025 10:38:07 AM Referred By: REFERRED SELF Confirmed By: Dorian To
[2025-08-13] MEDS: ATORVASTATIN 20 MG TAB PO ONE (11:21)
[2025-08-13] MEDS: ASPIRIN 81 MG CHEW PO ONE (11:22)
[2025-08-13 11:31] LABS: Cholesterol 144.0 mg/dl (0-200); HDL Cholesterol 36.0 mg/dl; Triglycerides 189.0 mg/dl (0-150)
--- NOTE | 2025-08-13 11:52 | Pre Anesthesia Assessment ---
Date of Service August 13, 2025 Pre Sedation Assessment Vital Signs Temp Pulse Pulse Resp BP BP BP 08/13/25 11:00 98.1 F 67 18 141/92 H 08/13/25 07:19 98.2 F 56 L 20 147/83 H 08/13/25 03:31 97.5 F L 63 17 144/81 H 08/12/25 22:54 97.9 F 61 17 157/90 H 154/88 H 08/12/25 21:36 65 08/12/25 19:25 98.2 F 67 19 164/96 H 08/12/25 16:26 98.4 F 71 17 159/99 H 08/12/25 16:23 75 08/12/25 15:00 73 16 131/90 08/12/25 14:00 71 16 160/94 H 08/12/25 13:30 65 16 148/88 H 08/12/25 12:59 75 08/12/25 12:50 75 18 177/103 H 08/12/25 12:43 98.4 F 74 19 186/101 H 08/12/25 12:42 Pulse Ox O2 Del Method 08/13/25 11:00 95 Room Air 08/13/25 07:19 92 Room Air 08/13/25 03:31 92 Room Air 08/12/25 22:54 92 Room Air 08/12/25 21:36 08/12/25 19:25 96 Room Air 08/12/25 16:26 95 Room Air 08/12/25 16:23 08/12/25 15:00 95 Room Air 08/12/25 14:00 95 Room Air 08/12/25 13:30 96 Room Air 08/12/25 12:59 08/12/25 12:50 97 Room Air 08/12/25 12:43 94 Room Air 08/12/25 12:42 96 Room Air Cardiovascular + regular rate Respiratory + respiratory effort normal Pre-Sedation Airway Assessment Smoking Status: Never smoker Hx Sleep Apnea: No Hx Difficult Intubation: No Short, Thick Neck: No Thyromental Distance: < 3.5 Finger Breadths Oral Cavity: + Dental Abnormalities ASA: ASA3 Procedure Planning Contraindications for Sedation: none Current Medications Reviewed: Yes Notes The planned sedation has been discussed with the patient. Informed Consent was obtained. I have identified the patient, determined the appropriateness of sedation and have assessed the patient immediately prior to the procedure. All medicine(s) and interventions are by my order.
[2025-08-13] MEDS: NITROGLYCERIN/D5W 100MCG/ML 20ML SYR ONE (12:21)
[2025-08-13] MEDS: niCARdipine 2,000 MCG/20 ML SYR ONE (12:21)
--- NOTE | 2025-08-13 12:48 | Post Anesthesia Assessment ---
Date of Service August 13, 2025 Post Sedation Assessment Vital Signs Temp Pulse Pulse Resp BP BP Pulse Ox 08/13/25 11:00 98.1 F 67 18 141/92 H 95 08/13/25 07:19 98.2 F 56 L 20 147/83 H 92 08/13/25 03:31 97.5 F L 63 17 144/81 H 92 08/12/25 22:54 97.9 F 61 17 157/90 H 154/88 H 92 08/12/25 21:36 65 08/12/25 19:25 98.2 F 67 19 164/96 H 96 08/12/25 16:26 98.4 F 71 17 159/99 H 95 08/12/25 16:23 75 08/12/25 15:00 73 16 131/90 95 08/12/25 14:00 71 16 160/94 H 95 08/12/25 13:30 65 16 148/88 H 96 08/12/25 12:59 75 08/12/25 12:50 75 18 177/103 H 97 O2 Del Method 08/13/25 11:00 Room Air 08/13/25 07:19 Room Air 08/13/25 03:31 Room Air 08/12/25 22:54 Room Air 08/12/25 21:36 08/12/25 19:25 Room Air 08/12/25 16:26 Room Air 08/12/25 16:23 08/12/25 15:00 Room Air 08/12/25 14:00 Room Air 08/12/25 13:30 Room Air 08/12/25 12:59 08/12/25 12:50 Room Air Recovery Score Activity: Moves 4 extremities Respiration: Deep Breath/Cough Circulation: +/-20% PreAnes Value Consciousness: Fully Awake Oxygen Saturation: O2 needed for >90% Discharge Sedation Level of Care: Fast Track Phase II
[2025-08-13] MEDS: OPTIRAY 350 ONE (12:50)
[2025-08-13] MEDS: MIDAZOLAM HCL 1 MG/ML 2ML VIAL ONE (12:50)
[2025-08-13] MEDS: HEPARIN (PORCINE) 1000 UNIT/ML 10 ML (CATH LAB USE ONLY) ONE ×2 (12:50→12:51)
[2025-08-13] MEDS: PRASugrel TAB 10 MG TAB PO ONE ×2 (12:51)
[2025-08-13] MEDS: NOREPINEPHRINE/D5W 4 MG/250 ML IV ONE (12:51)
--- NOTE | 2025-08-13 12:56 | Cardiac Catheterization ---
[facility] Data: Aerodynamics Engineer Cardiac Status Clinical evaluation leading to the procedure CAD Presenation: Non STEMI Anginal Classification: CCS IV Diagnostic Physicians Name: Dorian Miranda MD Closure Device Recommendations: PCI without planned CABG Cardiac Cath Procedure Full Procedure Date August 13, 2025 Pre-Procedure Diagnosis Pre-Procedure Diagnosis: Non STEMI AUC Score AUC Score: 8 Post-Procedure Diagnosis Post-Procedure Diagnosis: Severe CAD, Successful PCI and Normal Intracardiac Pressures Procedure(s) Performed Procedure(s) Performed: Coronary Angiography, Left Heart Cath, Drug Eluting Stent and IVUS Parts Lister Dorian Miranda MD Senior Software Development Engineer(s) Magdalena Estimated Blood Loss Estimated Blood Loss: 25 Medication(s) Medication(s): Fentanyl, Heparin, Lidocaine 1%, Nicardipine, Nitroglycerin and Versed Medication(s): Prasugrel Summary of Findings Indication: NSTEMI Access: 6 Fr right radial artery Catheters: [place], EBU 3.5 guide Findings: LM -short, no significant disease LAD -large caliber, proximal acute 70-80% stenosis with thrombus, 80% earlymid stenosis. Remainder of LAD without significant disease. 20-30% ostial stenosis of large D1 (proximal segment ectatic). Circumflex -large caliber mid segment luminal, 70% distal stenosis after takeoff of large OM 3 prior to left PLB. 30% proximal OM1. OM2, OM3 and left PLB without significant disease RCA -dominant, large caliber, 30% ostial, 30% proximal remainder of RCA without significant disease. RPDA and large right PLB without significant disease. LVEDP -11 -- PCI -- Antithrombotic therapy: Heparin, prasugrel Procedure: Left main cannulated with EBU 3.5 guide Pre-procedure flow STACEY 2 [employer] 50 wire passed across lesion into distal LAD Prowater wire placed into D1 Pfeiffer IVUS catheter placed to mid LAD. Pullback revealed eccentric/calcified plaque in mid LAD. Heterogenous plaque with thrombus noted in proximal LAD prior to diagonal takeoff. No significant ostial LAD or LM disease. Ostium of diagonal appeared without significant disease. 3.5 x 38 mm Jonathon LORENA placed to proximal to mid LAD across takeoff of 1st diagonal. Stent post-dilated with 4.0 noncompliant balloon IC vasodilators administered for spasm Repeat IVUS revealed well-apposed stent with minimal residual thrombus in proximal aspect of stent. Proximal stent appeared slightly underexpanded. Repeat angiography revealed mild haziness at proximal edge of stent. Repeat post-dilation of stent with 4.5 NC balloon. Post procedure STACEY 3 flow, stent well expanded with minimal residual stenosis and no apparent cardiac complications. Arterial Closure: TR Band Summary: 1. Multi-vessel coronary artery disease - Acute 80% proximal LAD. 80% early-mid LAD lesion - 70% distal circumflex stenosis after take-off of OM3 - 30% ostial/proximal RCA 2. Normal intracardiac filling pressure 3. Successful PCI of proximal to mid LAD with single drug-eluting stent (3.5 x 38 mm Jonathon; post-dilated with 4.0 NC and 4.5 NC proximally). 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 Any exceptions are noted below. [facility] Card Cath Procedure Codes Cardiac Catheterization Procedure 1: Cardiovascular Cath Procedures: 57835 Coronaries and LHC (+/-LV) Moderate Sedation Procedure 1: Sedation/Anesthesia: 78301 Mod Sedation by the same physician;Init15 Min Child Age 5 & Up Procedure 2: Sedation/Anesthesia: 26388 Mod Sedation by the same physician; Ea [id number] Minutes Stenting Procedure 1: Cardiovascular Stent Procedures: 18784 Perc transcatheter placement of intracoronary stent(s), with ang PG Care Time/CCT Total # of Minutes Spent Total Time Spent with Patient: Total time spent is greater than 50% in coordination of care (as documented) at patient's floor/unit and/or counseling patient:
[2025-08-13] MEDS: SODIUM CHLORIDE 0.9% 1,000 ML IV SCH (15:42)
[2025-08-14 06:35] LABS: Hematocrit (blood only) 45.4 % (42.0-52.0); Hemoglobin 15.7 g/dL (14.0-18.0); Mean Corpuscular Hemoglobin 29.8 pg (25.0-34.0); Mean Corpuscular Volume 86.3 fL (80.0-100.0); Platelet Count 209 K/uL (130-400); RDW Standard Deviation 39.1 fL (36.4-46.3); Red Blood Count 5.26 M/uL (4.70-6.10); White Blood Count 7.86 K/ul (4.8-10.8)
[2025-08-14 07:16] LABS: Alanine Aminotransferase 37.0 U/L (7-52); Albumin Level 4.2 gm/dl (3.4-5.0); Alkaline Phosphatase 90.0 U/L (34-104); Anion Gap 8.0 (3-11); Bilirubin,Total 1.3 mg/dl (0.2-1.0); Blood Urea Nitrogen 15.0 mg/dl (6-23); Calcium 9.0 mg/dl (8.6-10.3); Carbon Dioxide 24.0 mmol/L (21-32); Chloride 107.0 mmol/L (98-107); Cholesterol 124.0 mg/dl (0-200); Creatinine Clr Calc Pharmacy 119.1 ml/min; Glucose 99.0 mg/dl (70-99(Fasting)); HDL Cholesterol 32.0 mg/dl; Potassium 4.1 mmol/L (3.5-5.1); Sodium 139.0 mmol/L (136-145)
[2025-08-14 07:27] VITALS: RESP 16
[2025-08-14 07:30] LABS: Albumin Globulin Ratio 1.6 (0.9-2)
[2025-08-14 07:35] VITALS: PULSE 66
[2025-08-14 07:40] LABS: Globulin 2.6 gm/dl (2.5-4.0); Total Protein 6.8 gm/dl (6.0-8.3); Triglycerides 159.0 mg/dl (0-150)
[2025-08-14] MEDS: ATORVASTATIN 40 MG TAB PO SCH (08:14)
[2025-08-14] MEDS: PRASugrel TAB 10 MG TAB PO SCH (08:14)
[2025-08-14] MEDS: METOPROLOL SUCC 25MG EXT REL TAB PO SCH (08:14)
--- NOTE | 2025-08-14 08:20 | Electrocardiogram Report ---
Test Reason : Blood Pressure : */* mmHG Vent. Rate : 62 BPM Atrial Rate : 62 BPM P-R Int : 184 ms QRS Dur : 86 ms QT Int : 386 ms P-R-T Axes : -3 25 42 degrees QTcB Int : 391 ms Normal sinus rhythm Possible Inferior infarct , age undetermined Abnormal ECG When compared with ECG of 13-Aug-2025 13:23, (unconfirmed) No significant change was found Confirmed by Dorian To ([id number]) on 08/14/2025 8:20:38 AM Referred By: REFERRED SELF Confirmed By: Dorian To
--- NOTE | 2025-08-14 08:20 | Electrocardiogram Report ---
Test Reason : Blood Pressure : */* mmHG Vent. Rate : 59 BPM Atrial Rate : 59 BPM P-R Int : 196 ms QRS Dur : 90 ms QT Int : 410 ms P-R-T Axes : 1 24 36 degrees QTcB Int : 405 ms Sinus bradycardia Otherwise normal ECG When compared with ECG of 13-Aug-2025 05:56, No significant change was found Confirmed by Dorian To ([id number]) on 08/14/2025 8:19:49 AM Referred By: REFERRED SELF Confirmed By: Dorian To
--- NOTE | 2025-08-14 08:26 | Electrocardiogram Report ---
Test Reason : Blood Pressure : */* mmHG Vent. Rate : 61 BPM Atrial Rate : 61 BPM P-R Int : 186 ms QRS Dur : 94 ms QT Int : 428 ms P-R-T Axes : 9 25 36 degrees QTcB Int : 430 ms Normal sinus rhythm Normal ECG When compared with ECG of 13-Aug-2025 16:49, (unconfirmed) No significant change was found Confirmed by Dorian To ([id number]) on 08/14/2025 8:26:45 AM Referred By: REFERRED SELF Confirmed By: Dorian To
--- NOTE | 2025-08-14 08:31 | Cardiology Progress Note ---
Date of Service August 14, 2025 Assessment & Plan (1) NSTEMI (non-ST elevated myocardial infarction): (2) Hyperlipidemia: (3) HTN (hypertension): Plan: 54-year-old male with past history of hypothyroidism, dyslipidemia, and hypertension presents with symptoms of classic anginal symptoms, no acute repolarization abnormalities on serial EKG tracings, elevation in high- sensitivity troponin with initial measurement of 533 that subsequently increased to 3010--> 14,401--> 14,263 --> 14,333 pg/ml. Was hypertensive on presentation. Symptoms resolved having received sublingual nitroglycerin x 1 in the emergency department. Echocardiogram with no regional wall motion abnormalities. Normal LVEF 60-65%. Underwent CATH yesterday (08/13) with Dr. Miranda revealed multi-vessel CAD with 80% proximal LAD and 80% early-mid LAD receiving PCI and single drug-eluting stent (3.5 x 38 mm Jonathon) of proximal-mid LAD. Residual disease with 70% distal circumflex after take-off of OM3 and 30% ostial/proximal RCA - medically managed. 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 He is to remain off work on light duty and follow-up to complete necessary requirements to return to work based on organizational requirements. Recommend follow-up with primary care in [place] and establishing care with local apartment maintenance technician. Case discussed and coordinated with Dr. Lomeli. Please see Dr. Lomeli notes for further recommendations. I spent a total of 30 minutes coordinating, documenting, and providing care for this patient excluding time spent in the performance of separately billed services or time spent by another provider/QHP. PRAASD Colin Department of Cardiology Admission and Anticipated Discharge Date Admission Date: August 12, 2025 Supervising Physician Co-Signing Physician Notes I spent a total of 30 minutes on the date of service in preparation, delivery, and documentation of the care provided to this patient, excluding any time spent in the performance of separately billed services. I have personally performed a history and physical examination on the patient. I have reviewed the advance practitioner's documentation, and I agree with, and take responsibility for the plan of care. Subjective Seen by cardiology today for examination and follow-up. Sitting comfortably on the edge of the bed. Feeling well from a cardiac standpoint. Ambulating around h is room without recurrent chest discomfort or dyspnea on exertion. Denies tachy palpitations, lightheadedness, orthopnea, PND, or worsening edema. Chart, medications, and telemetry personally reviewed. Review of Systems Review of Systems: See HPI for pertinent positives. All others negative other than those noted in the HPI. CONSTITUTIONAL: No change in weight, No weakness, No fatigue, No fevers, No sweats or chills. HEENT: No visual changes, No epistaxis, No bleeding gums, No dysphagia, PULMONARY: No cough, sputum, or hemoptysis, No wheezing, No shortness of breath, and No recent change in breathing. CARDIOVASCULAR: No chest pain, No dyspnea on exertion, No edema, No palpitations, No syncope, No claudication, No calf pain. GASTROINTESTINAL: No change in appetite, No abdominal pain, No change in bowel habits, No significant heartburn, No nausea, No vomiting, No diarrhea, No const ipation, No blood in stools or black tarry stools, No dysphagia. HEMATOLOGIC: No abnormal bleeding and No bruising. NEUROLOGICAL: No falls, No dizziness, No lightheadedness, Normal balance, No headaches, and No weakness. PSYCH: No sleep disturbances, No mood changes. Physical Exam Physical Exam: Vital signs within normal limits as above. General: Well developed and nourished. No acute distress. A+Ox3. HEENT: Normocephalic. Atraumatic. EOMI. Conjunctiva and sclera clear. NECK: Trachea midline. No thyromegaly. No carotid bruits. No JVD. Carotid upstrokes are brisk. Heart: RRR. S1 and S2 noted. No murmur. No rubs or gallops. PMI non displaced. Lungs: No acute respiratory distress. Clear to auscultation. No wheezes.No rhonchi. No rales. Extremities: Normal capillary refill. No edema. No clubbing or cyanosis. Skin: Warm and dry. Right radial pressure dressing remains intact with no b leeding or hematoma noted. NEURO: No focal deficits. PSYCH: Appropriate affect and insight. Results & Data Vital Signs (Past 12 Hours) Vital Signs Temp Pulse Pulse Resp BP Pulse Ox O2 Del Method 08/14/25 07:30 66 08/14/25 07:25 36.6 C 65 16 117/78 91 Room Air 08/14/25 04:06 36.7 C 64 18 123/75 91 Room Air 08/14/25 01:05 63 08/13/25 22:50 36.7 C 63 17 125/81 93 Room Air Laboratory Results Cardiac Enzymes 08/14/25 Range/Units 06:02 AST 52 H (13-39) U/L Lipids 08/13/25 08/14/25 Range/Units 07:11 06:02 Triglycerides 189 H 159 H (0-150) mg/dl Cholesterol 144 124 (0-200) mg/dl HDL Cholesterol 36 32 mg/dl Cholesterol/HDL Ratio 4.0 3.9 (0-5) CBC 08/14/25 Range/Units 06:02 WBC 7.86 (4.8-10.8) K/ul RBC 5.26 (4.70-6.10) M/uL Hgb 15.7 (14.0-18.0) g/dL Hct 45.4 (42.0-52.0) % Plt Count 209 (130-400) K/uL Comprehensive Metabolic Panel 08/14/25 Range/Units 06:02 Sodium 139 (136-145) mmol/L Potassium 4.1 (3.5-5.1) mmol/L Chloride 107 (98-107) mmol/L Carbon Dioxide 24 (21-32) mmol/L BUN 15 (6-23) mg/dl Creatinine 0.85 (0.6-1.4) mg/dl Glucose 99 (70-99(Fasting)) mg/dl Calcium 9.0 (8.6-10.3) mg/dl AST 52 H (13-39) U/L ALT 37 (7-52) U/L Alkaline Phosphatase 90 (34-104) U/L Total Protein 6.8 (6.0-8.3) gm/dl Albumin 4.2 (3.4-5.0) gm/dl Intake and Output 08/13/25 08/14/25 08/14/25 22:59 06:59 14:59 Intake Total 901.333 / 1607.700 Balance 901.333 / 1607.700 Intake: IV 901.333 / 1157.700 Sodium Chloride 0.9% 1,000 ml @ 901.333 / 901.333 80 mls/hr IV .[id number] ALAN Rx#: [id number] Other: # Unmeasured Voids 1 Weight 104.8 kg Weight Measurement Method Standing Scale Diagnostic Findings EKG 10/14/24 at 05:58:50 NSR 61 bpm QTc 430 ms Cardiac CATH 08/13/25 Summary: 1. Multi-vessel coronary artery disease - Acute 80% proximal LAD. 80% early-mid LAD lesion - 70% distal circumflex stenosis after take-off of OM3 - 30% ostial/proximal RCA 2. Normal intracardiac filling pressure 3. Successful PCI of proximal to mid LAD with single drug-eluting stent (3.5 x 38 mm Jonathon; post-dilated with 4.0 NC and 4.5 NC proximally). PG Care Time/CCT Total # of Minutes Spent Total Time Spent with Patient: Total time spent is greater than 50% in coordination of care (as documented) at patient's floor/unit and/or counseling patient: [place] [address] SUB INP/OBS CARE 3/50MIN Patient Type Established Medical Decision Making High Complexity Diagnoses NSTEMI (non-ST elevated myocardial infarction) I21.4 Hyperlipidemia E78.5 HTN (hypertension) I10 Time Spent (min) 30
[2025-08-14] MEDS: LOSARTAN POTASSIUM 25 MG TAB PO SCH (11:00)
[2025-08-14 11:23] VITALS: BP 143/83; TEMP 97.5; O2SAT 95
--- NOTE | 2025-08-14 13:24 | Discharge Summary ---
<Statement entered by Dao Phan, DO - 08/14/25 14:35> I have seen and examined the patient and have discussed the case with the advance practice provider. I have reviewed the advanced practitioner's documentation, and I agree with, and take responsibility for that plan of care. Patient dressed and ready to go early this morning. No recurrent chest pain, no shortness of breath. Right wrist good pulse, no evidence of significant hematoma Discussed with patient his new medications and the reason for each of them. Discharge plans as outlined below I spent a total of 18 minutes coordinating, documenting, and providing care for this patient excluding time spent by another provider/QHP. Date of Service August 14, 2025 Admission HPI Per Admitting Provider Patient is a 54 year old M with a past medical history of hyperlipidemia, hypothyroidism, hypertension without medical management, presenting with exertional chest pain that started today around 8:30am when ambulating short distance. Initially symptoms felt like a "toothache" then progressed to a squeezing chest pain with clamminess and diaphoresis. He took 4 baby aspirin and came here. Has a history of a heart murmur, found on cardiac workup via Echo in 2009 and then again 2017; asymptomatic at the time but had a workup for employment purposes. Echo suggestive of previous [place] per patient report. Has had high blood pressure at PCP but not on an medications. He has no personal cardiac history, but does have a strong family history of cardiac disease with father requiring multiple stents. Not taking blood thinners. Lives in [place] and visiting family for the holiday. Denies fever, chills, weight loss, weakness, headache, cognitive changes, vision/hearing changes, chest pain, SOB, swelling, difficulty breathing, urinary concerns, N/V/D, joint swelling/pain, ambulation difficulty, skin rashes, lesions, bleeding, bruising. Discussed with ED provider labs specifically elevated troponin with suspected NSTEMI, medical management in ED including cardiology consult and nitro administration, reason for admission for NSTEMI management. In the emergency department, patient was hypertensive with otherwise stable vital signs. EKG showing NSR with rate 71 bpm, QTc 428. Trop elevated 533. Nitro given for chest pain with positive results. Lab workup unremarkable with no evidence of infectious etiology. Nonfasting glucose 155 following a large meal. Additional workup with Chest Xray showing cardiomegaly and no active cardiopulmonary disease. History obtained primarily from the patient and via hospitalization record. Admission Exam Per Admitting Provider VITALS: Reviewed. WEIGHT/BMI reviewed. GEN: Healthy appearing, well-developed, NAD. PSYCH: Good Judgment. AOx3. Normal memory, mood, and affect. HEENT -Head: NC/AT; -Eyes: PERRL, EOMI. No discharge or redness; -Ears: External ears are normal. -Nose: Normal nares. -Mouth and throat: MMM. Normal gums, mucosa, palate,. Good dentition. NECK: Supple, with no masses. CV: S1, S2 with LUNGS: CTAB, no w/r/c. ABD: Soft, NT/ND, NBS, no masses or organomegaly. : N/A SKIN: Warm, well perfused. No skin rashes or abnormal lesions. MSK: No deformities, Normal gait. EXT: No clubbing, cyanosis, or edema. NEURO: Ambulating with no limitations. Normal muscle strength and tone. No focal deficits. Principal Diagnosis NSTEMI Discharge Exam VITALS: Reviewed. WEIGHT/BMI reviewed. GEN: Healthy appearing, well-developed, NAD. PSYCH: Good Judgment. AOx3. Normal memory, mood, and affect. HEENT -Head: NC/AT; -Eyes: PERRL, EOMI. No discharge or redness; -Ears: External ears are normal. -Nose: Normal nares. -Mouth and throat: MMM. Normal gums, mucosa, palate,. Good dentition. NECK: Supple, with no masses. CV: RRR, no m/r/g. LUNGS: CTAB, no w/r/c. ABD: Soft, NT/ND, NBS, no masses or organomegaly. : N/A SKIN: Warm, well perfused. No skin rashes or abnormal lesions. MSK: No deformities, Normal gait. EXT: No clubbing, cyanosis, or edema. NEURO: Ambulating with no limitations. Normal muscle strength and tone. No focal deficits. Discharge Data Allergies Allergy/AdvReac Type Severity Reaction Status Date / Time No Known Allergies Allergy Verified 08/12/25 12:59 Consultations 08/12/25 14:12 ED Decision to Admit Stat 08/12/25 16:23 Consult Cardiology Routine Procedures Performed Operation Date: 08/13/25 11:30 Actual Procedures p Cineradiography w/Routine Exam - Dorian Miranda MD Ordered Studies 08/13/25 11:31 CL Cath Imgs for PACS use only Routine Hospital Course (1) NSTEMI (non-ST elevated myocardial infarction): (2) Hyperlipidemia: (3) Hypothyroidism: Plan Mr. Armenta is a 54 year old male with a past medical history significant for hyperlipidemia, hypothyroidism, hypertension without medical management, who presented to [facility] on 08/12/25 with complaint of exertional chest pain that started on day of admission around 8:30am when ambulating short distance. Initially symptoms felt like a "toothache" then progressed to a squeezing chest pain with clamminess and diaphoresis. He took 4 baby aspirin at home and then came to the hospital. He was hypertensive on presentation with symptom resolution with sublingual nitroglycerin in the emergency department. Echocardiogram showed no regional wall motion abnormalities, a normal LVEF 60-65%, and no valvular concerns. Reportedly, he had a history of abnormal echocardiograms that didn't require cardiology intervention. Cardiac catheterization revealed multi-vessel coronary artery disease with 80% proximal LAD and 80% early-mid LAD blockage. He underwent successful PCI and implantation of a single 3.5 mm x 38 mm Juncos Dorsey drug- eluting stent. Dual anti-platelet therapy recommended status post PCI with aspirin and prasugrel. He was started on maintenance dose of prasugrel 10 mg daily with the recommendation for 1 year of treatment at minimum given NSTEMI and drug eluting stent placement. He is visiting family for the holiday and lives in [place], [place]. At time of discharge, he remained stable and asymptomatic from a cardiac standpoint with no recurrent anginal symptoms. Heart rate and blood pressure well controlled with metoprolol succinate 25mg and losartan 25 mg. Prior to this admission, he was on statin medication and with consideration to his current state, atorvastatin dosing was increased. Monthly supply of medications was prescribed at time of discharge for Mr. Armenta to return home and receive follow up with primary care and referral for cardiology follow up. This was discussed with Mr. Armenta and he was agreeable. Total Time Total Time Spent Total Time Spent (In Minutes): Patient seen in collaboration with Dr. Phan. Please see addendum.I spent a total of 30 minutes coordinating, documenting and providing care for this patient excluding time spent in the performance of separately billed services or time spent by another provider/QHP. Discharge Plan Discharge Items Patient Disposition: Home - Self-Care Reason For Visit: NSTEMI Discharge Diagnosis: NSTEMI Condition on Discharge: Fair Activity: Resume your previous activity Non-emergency contact: Primary Care Provider Call non-emergency contact if: you have any medication questions, your pain is unusual for you, your pain is concerning for you and you have a fever Follow-up/Referrals: FABIOLA PARKER [Other] Diet: Heart Healthy Addtl Attending Provider Instructions: Mr. Armenta, It was a pleasure taking care of your during your hospital stay at [facility]. You were admitted to the hospital for chest pain. When you came to the hospital, a medicine called Nitroglycerin was given and your chest pain was relieved. We trended your cardiac enzymes called troponin and this level continued to rise; Cardiology was consulted. Your workup for chest pain indicated you had a NSTEMI, which is a heart attack that required higher intervention, such as a cardiac catheterization. Additional workup included an echocardiogram which was normal with the results listed below. When you had the cardiac catheterization, one of your heart vessels called the LAD was severely blocked and required a stent; you have 1 stent placed to the LAD vessel. Following the procedure you were started on 4 new medications- Metoprolol, Losartan, Aspirin, and Prasugrel. Additional information is listed below. You cholesterol medication dose was increased. At time of discharge, you were free of chest pain and any associated symptoms of heart attack. It is our recommendation that you follow up with a Composition Teacher and Primary Care Physician when you return home to [place]. A 1 month supply of prescriptions were sent to [facility]. MEDICATION CHANGES: The following medications have either been added, changed, continued or stopped. See the following list for details and when to take next dose. START: * Prasugrel 10 mg * Indication: Following cardiac cath procedure with stent; anti-platelet action * Next Dose: 08/15 at 9am * Aspirin 81 mg * Indication: Following cardiac cath procedure with stent; anti-platelet action * Next Dose:08/15 at 9am * Metoprolol Succinate 25 mg * Indication: Blood pressure management * Next Dose:08/15 at 9am * Losartan 25 mg daily * Indication: Blood pressure management * Next dose: 08/15 at 11am or with other medications in the morning * Atorvastatin 40 mg- this dose was changed from home regimen * Indication: Following cardiac cath procedure with stent; anti-platelet action * Next Dose:08/15 at 9am CONTINUE: * Levothyroxine * Next Dose: 08/15 in the morning * Montelukast * Next Dose: 08/15 per home routine SUMMARY OF TEST RESULTS: Cardiac catheterization completed on 08/13/25. Summary of findings below: 1. Multi-vessel coronary artery disease - Acute 80% proximal LAD. 80% early-mid LAD lesion - 70% distal circumflex stenosis after take-off of OM3 - 30% ostial/proximal RCA 2. Normal intracardiac filling pressure 3. Successful PCI of proximal to mid LAD with single drug-eluting stent (3.5 x 38 mm Jonathon; post-dilated with 4.0 NC and 4.5 NC proximally). RECOMMENDATIONS FOR FOLLOW-UP: Follow up with your primary care provider as soon as you are able to schedule an appointment. We would like you to discuss the following with your primary care provider and/or specialist at your next appointment: * Medications- monitor effects of new medications; continue what has been prescribed * Labs- may need routine lab workup for ongoing management You will need a referral for a Composition Teacher where you live for ongoing care. Please speak with your Primary Care Provider about getting established with appropriate specialists. Seek medical attention if you have: * temperature above 101 * chest pain or trouble breathing * abdominal pain, nausea, vomiting * diarrhea, dark stools or bloody stools * any unanswered questions or concerns Call 911 if symptoms are severe. Please take good care of yourself. It has been a pleasure taking care of you. Please take care of yourself. If you have any questions regarding your recent hospitalization please contact [facility] and request Adam Keenist @ [phone]. Pending Studies at Discharge: No Stand-Alone Forms: My [facility], Smoking Cessation Medications and DC Order Prescriptions: New atorvastatin 40 mg Tablet 40 mg PO QAM 30 Days Qty: 30 0RF aspirin 81 mg Tablet,Delayed Release (Dr/Ec) 81 mg PO DAILY 30 Days Qty: 30 0RF metoprolol succinate 25 mg Tablet Extended Release 24 Hr 25 mg PO QAM 30 Days Qty: 30 0RF prasugrel HCl 10 mg Tablet 10 mg PO QAM 30 Days Qty: 30 0RF losartan 25 mg Tablet 25 mg PO QAM 30 Days Qty: 30 0RF Continued montelukast 10 mg Tablet 10 mg PO DAILY levothyroxine 200 mcg Tablet 200 mcg PO DAILY Discontinued atorvastatin 20 mg Tablet 20 mg PO DAILY Discharge Orders: Discharge Order (Routine); Ordered 08/14/25 Ordered By: Cyndy Warner Admission Data Admit Date/Time: 08/12/25 14:51 Attending Provider: Dao Phan Admit Provider: Jose Lake Primary Care Provider: FABIOLA PARKER Other Providers: Fabiola Prakash; Jose Lake Other Interventions: Discharge Summary Assessment (RN) Last Done: 08/14/25 11:44
== END 2025-08-14 12:27 | disposition home or self-care (01) | DRG 229 ==
LOC: ED 12:40 → 2S 14:51 → SUATTDRO 14:51 → INTOOBSV 14:51 → 2S 16:00